=== PATIENT | male | born 1965 | race Hispanic/Latino ===

== ENCOUNTER 2024-12-04 11:04 | Emergency (ER) | payer OTHER ==
[~2024-12-04] VITALS: Ht 167.6 cm; Wt 81.6 kg
--- NOTE | 2024-12-04 11:10 | NUR ---
ANIKET GOLDEN SAW PT IN TRIAGE AND REMOVED C-COLLAR AT THIS TIME./MOISES
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
[2024-12-04 11:36] LABS: APPEARANCE,URINE CLEAR (CLEAR); GLUCOSE, URINE (UA) NEGATIVE (NEGATIVE); LEUKOCYTE ESTERASE ,URINE NEGATIVE Leu/uL (NEGATIVE); NITRATE,URINE NEGATIVE (NEGATIVE); OCCULT BLOOD,URINE NEGATIVE (NEGATIVE)
[2024-12-04 11:37] LABS: ADD UA MICROSCOPIC NO
[2024-12-04 11:48] LABS: IMMATURE GRANULOCYTE ABSOLUTE 0.05 K/uL (0-1); NUCLEATED RED BLOOD CELLS 0.0 % (0.0-0.19); PLATELET COUNT (AUTO) 212 K/uL (130-400); RED BLOOD CELL COUNT(AUTO) 4.80 MIL/uL (4.50-6.20); RED CELL DISTRIBUTION WIDTH 13.2 % (11.0-15.5); WHITE BLOOD COUNT (AUTO) 8.8 K/uL (4.8-10.8)
[2024-12-04 11:55] LABS: CREATININE 0.9 mg/dL (0.5-1.3); GLOMERULAR FILTR. RATE CALC 97.0 mL/min (>90); GLUCOSE,RANDOM 158.0 mg/dL (70-105); SODIUM SERUM 140.0 mmol/L (136-145); UREA NITROGEN, BLOOD 15.0 mg/dL (7-18)
[2024-12-04] MEDS ORDERED: IOHEXOL-350 75 ML VIAL IV ONE (12:29)
--- NOTE | 2024-12-04 12:44 | NUR ---
CT DELAY DUE TO LABS PENDING
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
[2024-12-04] MEDS ORDERED: IBUP-2077 PO (14:26)
[2024-12-04 14:34] VITALS: BP 126/72; PULSE 86; RESP 18; TEMP 98.3; O2SAT 99
== END 2024-12-04 14:38 | disposition home or self-care (01) ==
LOC: EDH 11:04
DX: S10.93XA Contusion of unspecified part of neck, initial encounter (principal); S30.1XXA Contusion of abdominal wall, initial encounter; V49.9XXA Car occupant (driver) (passenger) injured in unspecified traffic accident, initial encounter; Y93.89 Activity, other specified; Y92.488 Other paved roadways as the place of occurrence of the external cause; Y99.8 Other external cause status
CPT/HCPCS: 99285; 74177; 80048; 85025; 81003; 36415; 72040; Q9967